=== PATIENT | female | born 1965 | race Caucasian/White ===

== ENCOUNTER 2023-06-16 07:19 | Emergency (ER) | payer OTHER, SELFPAY ==
[2023-06-16 07:34] VITALS: BP 123/69
--- NOTE | 2023-06-16 08:37 | ED.GENMED ---
History of Present Illness
General
Chief Complaint: Abdominal Pain
Source: patient and family
Exam Limitations: none
Time Seen by Provider: 06/16/23 07:53
Nursing documentation reviewed up to this point in time: agreed with
Travel History
Have you had any contact with someone who has COVID-19?: No
Do you have any symptoms of coronavirus? Fever > 100 degrees, chills, cough, shortness of breath, sore throat, loss of taste or smell, muscle aches, or headache?: No
History of Present Illness
History of Present Illness:
57-year-old female history of melanoma status postresection diverticulitis x 1, presents with lower abdominal pain left greater than right for a day or 2 appetites been okay no fever no dysuria or frequency, after prior episode she did follow-up and
have a colonoscopy, no prior abdominal surgeries, drinks socially not excess non-smoker has had kidney stones before states this is different than that
Past History
Past History
ED Past Medical History: Cancer and Other (Melanoma); Negative HTN
ED Past Surgical History: Other; Negative Cardiac
Social History
Tobacco: Non-smoker
Alcohol: Occasional
Drug: None
Personal:
Living: with family
Employment: Employed
Family History
Family History: Other (Noncontributory)
Phy Exam
Physical Exam
Physical Exam:
Physical Exam
General: no apparent distress, not acutely ill
Neck: No jaundice
Heart: s1/s2 regular rate and rhythm, no murmur. equal radial pulses.
Lungs: no acute respiratory distress. clear bilaterally
Abdomen: Soft tender in the left greater than right lower
Neuro: alert and oriented. no focal neurological deficits
Skin: no rash
Psychiatric: well kept. interactive and cooperative
Extremities: no edema.
Course
Orders/Labs/Results
Orders:
Orders
06/16/23 08:20
CT Abd/pel W Iv And Oral Contr Urgent
Comment:
Reason For Exam: pain
Complete Blood Count/With Diff Urgent
Comprehensive Metabolic Panel Urgent
Iohexol [Omnipaque] See Protocol PO NOW STA
06/16/23 08:21
IV Insert/Care/Rem.- Treatment PRN
0.9% Sodium Chloride 1000 ml [Nss] 1,000 ml IV BOLUS
HYDROmorphone [Dilaudid] 0.5 mg IV NOW STA
Ketorolac [Toradol] 15 mg IV NOW STA
Ondansetron Injectable [Zofran] 4 mg IV NOW STA
06/16/23 09:23
Urinalysis Reflex To Culture Urgent
Date Specimen was Collected: 06/16/23
Time Specimen was Collected: 09:22
06/16/23 12:30
Amoxicillin 875 mg/Clav 125 mg [Augmentin 875 mg/125 mg] 1 tablet PO NOW STA
Dicyclomine [Bentyl] 20 mg PO NOW STA
Abnormal Lab Results
06/16/23 06/16/23
08:20 09:23
MPV 10.7 H fL
(7.4-10.4)
Absolute Neuts (auto) 8.6 H 10^3/uL
(1.4-6.5)
Absolute Lymphs (auto) 0.7 L 10^3/uL
(1.2-3.4)
Absolute Monos (auto) 0.7 H 10^3/uL
(0.1-0.6)
Neutrophils % 85.8 H %
(42.2-75.2)
Lymphocytes % 6.7 L %
(20.5-51.1)
Glucose 126 H mg/dl
(70-99)
Total Bilirubin 1.4 H mg/dl
(0.2-1.3)
Urine Ketones Trace A
(Negative)
06/16/23 08:20
06/16/23 08:20
Vital Signs
Initial and Last Documented VS:
Initial Vital Signs
Temp Pulse Resp BP Pulse Ox
98.1 F 77 18 123/69 98
06/16/23 07:34 06/16/23 07:34 06/16/23 07:34 06/16/23 07:34 06/16/23 07:34
Last Documented Vital Signs
Temp Pulse Resp BP Pulse Ox
98.1 F 77 18 123/69 98
06/16/23 07:34 06/16/23 07:34 06/16/23 07:34 06/16/23 07:34 06/16/23 07:34
MDM/Problems Addressed
Differential Diagnosis Includes:
Diverticulitis appendicitis renal colic
MDM/Problems Addressed:
Abdominal
Chronic conditions affecting care:
Diverticular
Acute Exacerbation and/or Progression of Chronic Illness:
Diverticulitis
*Critical Care Note
Total Time (30-74mins, 75-104mins- exclusive of procedures): Not Applicable
Update Note
Update Note:
Will check CT with IV p.o.
[address] report noted patient still with lower abdominal pain and bloating consideration for empiric treatment for diverticulitis reviewed with patient she is in agreement
ED Attending Note
-
Portions of this chart may have been created with voice recognition software.� Occasional wrong word or��sound alike� substitutions may have occurred due to the inherent limitations of voice recognition software.
Discharge Plan
Departure
Patient Disposition: Home (Routine Discharge)
Date of Disposition: 06/16/23
Time of Disposition: 12:34
Patient with high blood pressure during this ER visit?: No
Condition: Good
Covid-19: Not Applicable
Discharge Problem:
Abdominal pain
Instructions: Abdominal Pain
Prescriptions:
New
amoxicillin-pot clavulanate 875-125 mg tablet
1 tab PO BID Qty: 14 0RF
ondansetron 4 mg tablet,disintegrating
4 mg PO Q8H PRN (Reason: nausea and vomiting) 120 Days Qty: 14 0RF
dicyclomine 20 mg tablet
20 mg PO QID PRN (Reason: abdominal pain) Qty: 14 0RF
No Action
ibuprofen 600 MG tablet
600 mg PO Q6H Qty: 30 0RF
ondansetron 4 MG tablet,disintegrating
4 mg PO TIDPRN PRN (Reason: NAUSEA) Qty: 20 0RF
hydrocodone-acetaminophen [Vicodin] 1 EACH tablet
1 ea PO Q4 PRN (Reason: pain) Qty: 20 0RF
Referrals:
Amanda Ragsdale CRNP [Family Provider] - Next open appointment
Activity Restrictions/Additional Instructions:
[place] diet nothing fatty or spicy
Interventions
Interventions:
*Risk Screen - Suicide Last Done: 06/16/23 07:34
*General Assessment Last Done: 06/16/23 08:08
*Neglect/Abuse Screening Last Done: 06/16/23 07:34
ED- Fall Risk Assessment Last Done: 06/16/23 08:08
*ED COVID-19 Vaccine History Last Done: 06/16/23 07:34
XL-Vcwnnf-Awrafssbqs Assessment Last Done: 06/16/23 08:08
[2023-06-16 08:43] LABS: % Basophils 0.2 % (0-2); % Eosinophils 0.2 % (0-6); % Immature Granulocytes 0.3 % (0-0.5); % Lymphocytes 6.7 % (20.5-51.1); % Monocytes 6.8 % (1.7-9.3); % Neutrophils 85.8 % (42.2-75.2); Absolute Lymphocytes 0.7 10^3/uL (1.2-3.4); Absolute Monocytes 0.7 10^3/uL (0.1-0.6); Absolute Neutrophils 8.6 10^3/uL (1.4-6.5); Hematocrit 40.2 % (37.0-47.0); Hemoglobin 14.2 g/dL (12.0-16.0); Mean Corp Hgb Conc. 35.3 g/dL (33.0-37.0); Mean Corpuscular Hgb 28.9 pg (27.0-31.0); Mean Corpuscular Volume 81.7 fL (81.0-99.0); Mean Platelet Volume 10.7 fL (7.4-10.4); Nucleated Red Blood Cells % 0 %; Platelet Count 165 10^3/uL (130-400); Red Blood Cell Count 4.92 10^6/uL (4.20-5.40); Red Cell Dist. Width 12.6 % (11.5-14.5)
[2023-06-16 08:45] LABS: ALT (SGPT) 26 U/L (0-35); AST (SGOT) 28 U/L (14-36); Albumin 4.3 g/dl (3.5-5.0); Alkaline Phosphatase 62 U/L (38-126); Blood Urea Nitrogen 17 mg/dl (7-17); Calcium 9.2 mg/dl (8.4-10.2); Carbon Dioxide 25 mmol/L (22-30); Chloride 103 mmol/L (98-107); Glucose 126 mg/dl (70-99); Potassium 3.7 mmol/L (3.5-5.1); Sodium 135 mmol/L (135-145); Total Bilirubin 1.4 mg/dl (0.2-1.3); Total Protein 6.6 g/dl (6.3-8.2); eGFR > 60.00
[2023-06-16] MEDS: NSS 1000 IV (09:08)
[2023-06-16] MEDS: OMNIPAQUE 50 ML PO (09:08)
[2023-06-16] MEDS: DILAUDID 0.5 MG IV (09:09)
[2023-06-16] MEDS: ZOFRAN 4 MG IV (09:09)
[2023-06-16] MEDS: TORADOL 15 MG IV (09:09)
[2023-06-16 09:43] LABS: Urine Albumin Negative (Neg - Trace); Urine Bilirubin Negative (Negative); Urine Character Clear (Clear); Urine Color Yellow; Urine Glucose Negative (Negative); Urine Ketone Trace (Negative); Urine Leukocyte Negative (Negative); Urine Nitrite Negative (Negative); Urine Occult Blood Negative (Negative); Urine Specific Gravity 1.015 (<1.030); Urine Urobilinogen Negative (Neg - 1+); Urine pH 6.5 (5.0-9.0)
[2023-06-16] MEDS: AUGMENTIN 875 MG/125 MG 1 TABLET PO (12:48)
[2023-06-16] MEDS: BENTYL 20 MG PO (12:48)
[2023-06-16 13:04] VITALS: BP 137/76
== END 2023-06-16 13:06 | disposition home or self-care (01) ==
LOC: EMR 07:19
PROVIDERS: EMERGENCY PHYSICIAN Emergency Medicine; FAMILY PHYSICIAN Nurse Practitioner
DX: R10.30 Lower abdominal pain, unspecified (principal); R14.0 Abdominal distension (gaseous); K57.92 Diverticulitis of intestine, part unspecified, without perforation or abscess without bleeding
CPT/HCPCS: 99285; 96374; 96375 ×2; 96361; 74177; 80053; 81003; 85025; Q9967

== ENCOUNTER → 2023-10-30 06:23 | Day surgery (SDC) | payer OTHER, SELFPAY | LOC: GI 06:23 | PROVIDERS: ATTENDING PHYSICIAN Internal Medicine | DX: K29.50 Unspecified chronic gastritis without bleeding (principal); K22.2 Esophageal obstruction; R13.10 Dysphagia, unspecified | CPT/HCPCS: 43249; 43239; 88305; 88342 ==

== ENCOUNTER → 2023-11-03 15:48 | Outpatient (REF) | payer OTHER, SELFPAY | LOC: HWWDC 15:48 | PROVIDERS: ATTENDING PHYSICIAN Nurse Practitioner Obstetrics & Gynecology; FAMILY PHYSICIAN Nurse Practitioner | DX: Z12.31 Encounter for screening mammogram for malignant neoplasm of breast (principal) | CPT/HCPCS: 77063; 77067 ==

== ENCOUNTER → 2024-05-27 07:20 | Outpatient (REF) | payer OTHER, SELFPAY ==
[2024-05-27 09:33] LABS: % Basophils 0.6 % (0-2); % Eosinophils 1.8 % (0-6); % Immature Granulocytes 0.2 % (0-0.5); % Lymphocytes 19.9 % (20.5-51.1); % Monocytes 8.5 % (1.7-9.3); Absolute Eosinophils 0.1 10^3/uL (0-0.7); Absolute Lymphocytes 1.1 10^3/uL (1.2-3.4); Absolute Monocytes 0.5 10^3/uL (0.1-0.6); Absolute Neutrophils 3.8 10^3/uL (1.4-6.5); Hematocrit 43.9 % (37.0-47.0); Hemoglobin 14.8 g/dL (12.0-16.0); Mean Corp Hgb Conc. 33.7 g/dL (33.0-37.0); Mean Corpuscular Hgb 28.8 pg (27.0-31.0); Mean Corpuscular Volume 85.6 fL (81.0-99.0); Mean Platelet Volume 11.3 fL (7.4-10.4); Nucleated Red Blood Cells % 0 %; Platelet Count 177 10^3/uL (130-400); Red Blood Cell Count 5.13 10^6/uL (4.20-5.40); Red Cell Dist. Width 12.4 % (11.5-14.5); White Blood Cell Count 5.4 10^3/uL (4.8-10.8)
[2024-05-27 09:45] LABS: ALT (SGPT) 15 U/L (0-35); AST (SGOT) 20 U/L (14-36); Albumin 4.6 g/dl (3.5-5.0); Alkaline Phosphatase 56 U/L (38-126); Blood Urea Nitrogen 23 mg/dl (7-17); Calcium 9.8 mg/dl (8.4-10.2); Carbon Dioxide 29 mmol/L (22-30); Chloride 103 mmol/L (98-107); Glucose 116 mg/dl (70-99); HDL Cholesterol 101 mg/dl; Iron 70 ug/dl (37-170); LDL Cholesterol, Calculated 120 mg/dl; Potassium 4.1 mmol/L (3.5-5.1); Sodium 140 mmol/L (135-145); Total Bilirubin 0.9 mg/dl (0.2-1.3); Total Cholesterol 236 mg/dl (50-199); Total Protein 6.6 g/dl (6.3-8.2); Triglyceride 78 mg/dl (10-149); Very Low Density Lipoprotein 15 mg/dl (0-30); eGFR > 60.00
[2024-05-27 09:54] LABS: Percent Saturation 26 % (20-50); Total Iron Binding Capacity 263 ug/dl (265-497)
[2024-05-27 10:22] LABS: TSH Reflex To Free T4 4.67 uIU/ml (0.47-4.68)
[2024-05-27 10:26] LABS: Ferritin 48.4 ng/ml (11.1-264.0)
== END ==
LOC: HWLAB 07:20
DX: Z86.2 Personal history of diseases of the blood and blood-forming organs and certain disorders involving the immune mechanism (principal); Z01.818 Encounter for other preprocedural examination
CPT/HCPCS: 36415; 80053; 80061; 82728; 83540; 83550; 84443; 85025

== ENCOUNTER 2024-08-08 15:32 | Emergency (ER) | payer OTHER, SELFPAY ==
[2024-08-08 15:43] VITALS: BP 142/80
--- NOTE | 2024-08-08 18:37 | ED.GENMED ---
History of Present Illness
General
Chief Complaint: DVT/Possible Blood Clot
Source: patient
Exam Limitations: none
Time Seen by Provider: 08/08/24 18:19
History of Present Illness
History of Present Illness:
58yoF with history of recent left bunionectomy 8 weeks ago presenting with her for evaluation of left calf pain. Symptoms began about a week ago. She reports localized pain in her posterior calf as well as swelling near her ankle. She was
sent to the ED for concern for a DVT. Patient is otherwise asymptomatic and denies any chest pain, shortness of breath, dizziness, syncope. No prior history of VTE.
Past History
Past History
ED Past Medical History: Cancer and Other (Melanoma); Negative HTN
ED Past Surgical History: Other; Negative Cardiac
Social History
Tobacco: Non-smoker
Alcohol: Occasional
Drug: None
Personal:
Living: with family
Employment: Employed
Family History
Family History: Other (Noncontributory)
Phy Exam
General Physical Exam
General Presentation: well appearing and no apparent distress
General age: appears stated age
General Skin: warm and dry
General Habitus: normal
General Mental: alert
ENT Exam
ENT Exam: normocephalic
Pulmonary Exam
Pulmonary Exam: no respiratory distress
Neurological Exam
Neurological Exam: alert
[place] Coma Scale
Eye Opening: Spontaneous
Verbal Response: Oriented
Motor Response: Obeys Commands
GCS Total Score: 15
Musculoskeletal Exam
Musculoskeletal Exam: other (L calf: Leg in a walking boot. Pitting edema noted to lower leg/ankle region. +Mild calf tenderness. Compartments soft. No skin changes. 2+ DP pulse.)
Skin Exam
Skin Exam: normal color and warm/dry
Psychiatric Exam
Psychiatric Exam: normal mood/affect
Course
Orders/Labs/Results
Orders:
Orders
08/08/24 15:35
US Periph Venous LOWER Ext LT Urgent
Comment:
Reason For Exam: left calf pain. s/p bunionectomy
08/08/24 19:06
Basic Metabolic Panel Urgent
08/08/24 19:34
Apixaban [Eliquis] 10 mg PO ONCE ONE
Abnormal Lab Results
08/08/24
19:06
BUN 20 H mg/dl
(7-17)
Glucose 128 H mg/dl
(70-99)
08/08/24 19:06
Vital Signs
Initial and Last Documented VS:
Initial Vital Signs
Temp Pulse Resp BP Pulse Ox
98.5 F 64 18 142/80 99
08/08/24 15:43 08/08/24 15:43 08/08/24 15:43 08/08/24 15:43 08/08/24 15:43
Last Documented Vital Signs
Temp Pulse Resp BP Pulse Ox
98.5 F 63 18 141/81 99
08/08/24 15:43 08/08/24 20:01 08/08/24 20:01 08/08/24 20:01 08/08/24 20:01
MDM/Problems Addressed
Differential Diagnosis Includes:
58yoF here with L calf pain. Currently 8 weeks postop from a buniectomy. No associated CP/SOB. There is pitting edema on exam. LLE is neurovascularly intact. Differential diagnosis includes: DVT, superficial thrombophlebitis, dependent edema
Venous duplex obtained which shows acute DVT in the peroneal vein. Renal function normal on lab work. She was started on Eliquis. First dose given in ED and prescription provided for starter pack. Patient advised to f/u with PCP and informed
that she will need treatment for 3-6 months. ED return precautions reviewed including chest pain, dyspnea, syncope. Patient discharged in stable condition.
*Critical Care Note
Total Time (30-74mins, 75-104mins- exclusive of procedures): Not Applicable
ED Attending Note
-
Portions of this chart may have been created with voice recognition software.� Occasional wrong word or��sound alike� substitutions may have occurred due to the inherent limitations of voice recognition software.
Discharge Plan
Departure
Patient Disposition: Home (Routine Discharge)
Date of Disposition: 08/08/24
Time of Disposition: 19:37
Patient with high blood pressure during this ER visit?: Yes
Discharge Problem:
Acute deep vein thrombosis (DVT) of calf muscle vein of left lower extremity
Instructions: Deep Vein Thrombosis (Blood Clots in the Legs) (DC), Apixaban
Prescriptions:
New
Eliquis DVT-PE Treat 30D Start 5 mg (74 tabs) tablets,dose pack
See Rx Instructions .ROUTE .COMPLEX Qty: 74 0RF
Rx Instructions:
orally per package directions
No Action
ibuprofen 600 MG tablet
600 mg PO Q6H Qty: 30 0RF
ondansetron 4 MG tablet,disintegrating
4 mg PO TIDPRN PRN (Reason: NAUSEA) Qty: 20 0RF
hydrocodone-acetaminophen [Vicodin] 1 EACH tablet
1 ea PO Q4 PRN (Reason: pain) Qty: 20 0RF
amoxicillin-pot clavulanate 875-125 mg tablet
1 tab PO BID Qty: 14 0RF
ondansetron 4 mg tablet,disintegrating
4 mg PO Q8H PRN (Reason: nausea and vomiting) 120 Days Qty: 14 0RF
dicyclomine 20 mg tablet
20 mg PO QID PRN (Reason: abdominal pain) Qty: 14 0RF
Referrals:
Haritha Pastor MD [Family Provider] -
Activity Restrictions/Additional Instructions:
Start taking Eliquis (blood thinner) as prescribed.
Please call your family doctor tomorrow. You will need to be on blood thinners for 3 to 6 months.
Return to the ER with any worsening symptoms including chest pain or shortness of breath.
Interventions
Interventions:
*Risk Screen - Suicide Last Done: 08/08/24 15:43
*General Assessment Last Done: 08/08/24 15:43
*Neglect/Abuse Screening Last Done: 08/08/24 15:43
ED- Cardiac Assessment Last Done: 08/08/24 20:00
ED- Pulmonary Assessment Last Done: 08/08/24 20:00
ED-Peripheral Vascular Assessment Last Done: 08/08/24 20:00
ED-Skin Assessment Last Done: 08/08/24 20:00
Discharge Date and Time
Discharge Date/Time: 08/08/24 20:04
Print Language: SWEDISH
[2024-08-08 19:27] LABS: Blood Urea Nitrogen 20 mg/dl (7-17); Calcium 9.7 mg/dl (8.4-10.2); Carbon Dioxide 30 mmol/L (22-30); Chloride 102 mmol/L (98-107); Glucose 128 mg/dl (70-99); Potassium 4.2 mmol/L (3.5-5.1); Sodium 140 mmol/L (135-145); eGFR > 60.00
[2024-08-08 20:01] VITALS: BP 141/81
[2024-08-08] MEDS: ELIQUIS 10 MG PO (20:02)
== END 2024-08-08 20:04 | disposition home or self-care (01) ==
LOC: EMR 15:32
PROVIDERS: Physician Assistant; EMERGENCY PHYSICIAN Emergency Medicine; FAMILY PHYSICIAN Internal Medicine
DX: I82.462 Acute embolism and thrombosis of left calf muscular vein (principal); Z85.820 Personal history of malignant melanoma of skin
CPT/HCPCS: 99284; 80048; 93971

== ENCOUNTER → 2024-10-03 06:41 | Outpatient (REF) | payer OTHER, SELFPAY | LOC: HWRAD 06:41 | DX: M79.89 Other specified soft tissue disorders (principal) | CPT/HCPCS: 76882 ==